=== PATIENT | female | born 1995 | race Caucasian/White ===

== ENCOUNTER 2017-12-20 07:49 | Emergency (ER) | payer OTHER ==
[2017-12-20 08:15] LABS: AMORPHOUS SEDIMENT RFX SMALL (NEGATIVE); KETONE, URINE AUTO RFX NEGATIVE (NEGATIVE); RBC, URINE AUTO RFX TNTC /HPF (0-3); SPECIFIC GRAVITY UR AUTO RFX 1.013 (1.002-1.035); SQUAM EPITHELIAL CELL UR AURFX 0 /HPF (0-6); TRANSITIONAL EPITHELIAL AU RFX 4 /HPF
[2017-12-20 08:18] LABS: LEUKOCYTE ESTERASE UR AUTO RFX 3+ (NEGATIVE); NITRITE, URINE AUTO RFX POSITIVE (NEGATIVE); WBC, URINE AUTO RFX TNTC /HPF (0-3)
== END 2017-12-20 08:38 | disposition home or self-care (01) ==
LOC: M ED 07:49
DX: N30.00 Acute cystitis without hematuria (principal); J45.909 Unspecified asthma, uncomplicated; Z88.0 Allergy status to penicillin; Z88.1 Allergy status to other antibiotic agents
CPT/HCPCS: 81001

== ENCOUNTER 2018-04-12 10:15 | Outpatient (RCR) | payer OTHER ==
[~2018-04-12 10:15] MED LIST: BACT800T5 PO
== END 2018-04-13 ==
LOC: M PT 10:15
PROVIDERS: ATTEND Specialist
DX: M62.838 Other muscle spasm (principal); N94.19 Other specified dyspareunia

== ENCOUNTER 2018-04-19 09:05 | Outpatient (RCR) | payer OTHER | END 2018-05-11 | LOC: M PT 09:05 | PROVIDERS: ATTEND Specialist | DX: M62.830 Muscle spasm of back (principal) ==

== ENCOUNTER → 2018-07-26 | Outpatient (CLI) | payer OTHER, MEDICAID ==
--- NOTE | 2018-07-27 04:41 | REP ---
Clinical: Anatomical evaluation. Comparison: None . Findings: Examination demonstrates a single live intrauterine in variable presentation. motion is identified by technologist. Placenta is noted posterior and grade grade 1 without evidence for placenta previa or abruption. Amniotic fluid volume is normal. Cervix measures 3.1 cm in length and appears closed. No evidence for nuchal cord. Gestational age by LMP 18 weeks 6 days with DANIEL 12/21/2018 . Gestational age by current measurements the 18 weeks 3 days with DANIEL 12/24/2018 . FHR equals 141 beats per minute. BPD 3.8 cm 17 weeks 5 days HC 15.2 cm 18 weeks 2 days AC 12.3 cm 18 weeks 0 days FL 2.8 cm 18 weeks 4 days HL 2.9 cm 19 weeks 4 days HC/AC ratio 1.24 Estimated weight 220 grams ( eight 22nd percentile). Anatomical assessment demonstrates normal structures including cranium, choroid plexus, cavum, cerebellum/posterior fossa, lungs, four-chamber heart/ventricular outflow tracts, diaphragm, stomach, cord insertion/three-vessel cord, kidneys/bladder, and extremities. Limited evaluation of the facial features and spine noted. Impression: 1. Single live intrauterine in variable presentation demonstrating appropriate interval growth. 2. Limited evaluation of the facial features and spine. Remainder of the anatomical assessment is complete and normal. Electronically Signed by Crow Talamantes MD 07/27/2018 04:32 A
== END ==
LOC: M RAD 10:02
PROVIDERS: ATTEND Specialist
DX: Z34.82 Encounter for supervision of other normal pregnancy, second trimester (principal); Z3A.18 18 weeks gestation of pregnancy

== ENCOUNTER → 2018-08-24 | Outpatient (CLI) | payer OTHER, MEDICAID ==
--- NOTE | 2018-08-24 11:38 | REP ---
OBSTETRIC SONOGRAPHY: HISTORY: Followup anatomy. Supervision of . FINDINGS: Scanning demonstrates a viable single intrauterine gestation in a breech lie. motion is observed, and heart rate is recorded at 146 beats per minute. A posterior grade 1 placenta is seen without evidence of previa or abruption. Amniotic fluid is subjectively normal. Closed cervical length is 4.7 cm measured transabdominally. No extrauterine abnormalities observed. There has been appropriate interval growth. Four-chamber heart view is less than optimally seen. Lower extremities are less than optimally seen today due to lie. These structures were observed previously. The following additional anatomic structures are identified and felt to be unremarkable today: cranium, choroid plexus, cavum, cerebellum and posterior fossa, face and profile, lungs, left and right ventricular cardiac outflow tract views, diaphragm, left-sided stomach, abdominal wall cord insertion, three-vessel cord, kidneys and bladder, spine, upper extremities. BIOMETRY CHART: BPD 4.8 cm = 20 weeks 4 days Head circumference 19.3 cm = 21 weeks 4 days Abdominal circumference 16.3 cm = 21 weeks 3 days Femur length 3.9 cm = 22 weeks 2 days Humeral length 3.4 cm = 21 weeks 4 days HC/AC ratio normal 1.18 Cephalic index 0.67 (0.70-0.86) Estimated weight 448 grams, 0 pounds 15 ounces, 10th percentile for 23 weeks 3 days. IMPRESSION: Viable single intrauterine gestation at 21 weeks 3 days by today's composite sonographic criteria. Expected gestational age estimate based on prior sonography 22 weeks 4 days DANIEL by prior sonography December 24, 2018. In conjunction with the prior study from July 26, 2018, anatomic survey is felt to be complete. Electronically Signed by Agusto Cadet MD 08/24/2018 03:05 P
== END ==
LOC: M RAD 09:45
PROVIDERS: ATTEND Specialist
DX: Z34.82 Encounter for supervision of other normal pregnancy, second trimester (principal)

== ENCOUNTER → 2018-09-28 | Outpatient (CLI) | payer OTHER, MEDICAID ==
--- NOTE | 2018-09-28 16:11 | REP ---
Static ultrasound, for low weight gain: There is a single intrauterine gestation in a vertex presentation. There is motion and cardiac activity. The heart rate is 163 beats per minute. The placenta is posterior without previa or abruptio and is grade zero. The amniotic fluid volume subjectively is normal. The amniotic fluid index is 11.0, (9.4 - 22.8). weight is 1090 grams/2 pounds, 6 ounces. This is the 31st percentile for 28 weeks 0 days. Gestational age by today's ultrasound is 27 weeks 0 days/DANIEL 12/28/2018. Gestational age by the first ultrasound is 27 weeks 4 days/DANIEL 12/24/2018. Gestational age by LMP is 20 weeks 0 days/DANIEL 12/21/2018. Umbilical artery Doppler assessment: S/D ratio 2.00 (2.30-3.30) Resistive Index 0.50 (0.59-0.75 Diastolic Velocity 15.4 (>10 cm/sec) On the prior study dated 08/24/2018. The anatomic survey was normal. anatomic survey is again repeated today and is normal. Electronically Signed by Benjamín Yuen MD 09/28/2018 04:03 P
== END ==
LOC: M RAD 10:34
PROVIDERS: ATTEND Advanced Practice Midwife
DX: O26.13 Low weight gain in pregnancy, third trimester (principal)

== ENCOUNTER → 2018-11-22 | Outpatient (REF) | payer OTHER, MEDICAID | LOC: M LAB REF 12:49 | PROVIDERS: ATTEND Advanced Practice Midwife | DX: Z34.83 Encounter for supervision of other normal pregnancy, third trimester (principal) ==

== ENCOUNTER → 2018-11-27 | Outpatient (CLI) | payer OTHER, MEDICAID ==
[~2018-11-27] MED LIST changes: +BUSP10TA PO; +PRENTAB9 PO
--- NOTE | 2018-11-28 04:50 | REP ---
Clinical: well-being Comparison: 09/28/2018 . Findings: Examination demonstrates a single live intrauterine in cephalic presentation. motion is identified by technologist. Placenta is noted posterior fundal and grade II without evidence for placenta previa or abruption. Amniotic fluid volume is normal. No evidence for nuchal cord. Gestational age by LMP 36 weeks 4 days with DANIEL 12/21/2018 . Gestational age by current measurements 36 weeks 0 days with DANIEL 12/25/2018 . FHR equals 144 beats per minute. BPD 8.8 cm 35 weeks 5 days HC 32.0 cm 36 weeks 1 day AC 32.2 cm 36 weeks 1 day FL 7.2 cm 36 weeks 6 days HC/AC ratio 0.99 Estimated weight 2893 grams ( 47 percentile). Amniotic fluid index: 13.8 cm Umbilical cord SD ratio: 2.28 Biophysical profile score: 6/8 ( breathing 0, tone 2, movement 2, AFV 2) Impression: 1. Single live intrauterine in cephalic presentation demonstrating appropriate interval growth. 2. Amniotic fluid volume normal. 3. Biophysical profile score: 6/8 Electronically Signed by Crow Talamantes MD 11/28/2018 04:43 A
== END ==
LOC: M LRY 08:02
PROVIDERS: ATTEND Advanced Practice Midwife
DX: Z34.83 Encounter for supervision of other normal pregnancy, third trimester (principal); Z3A.36 36 weeks gestation of pregnancy

== ENCOUNTER 2018-12-15 17:58 | Inpatient (IN) | payer OTHER, MEDICAID ==
[~2018-12-15] VITALS: Ht 170.2 cm; Wt 68.0 kg
[~2018-12-15 17:58] MED LIST changes: -BUSP10TA PO; -PRENTAB9 PO
[2018-12-15 18:35] VITALS: BP 126/71
[2018-12-15] MEDS ORDERED: LACTATED RINGER'S 1000 ML IV STA (18:37)
--- NOTE | 2018-12-15 18:55 | HPEPDOC ---
Obstetrical History & Physical General Date of Admission Dec 15, 2018 at 17:58 History of Present Illness Chief Complaint: Induction of labor Information Provided By: Patient Age: 23 : 3 Term: 1 Pre-term: 0 Abortions: 1 Livin Care Care: Good Care Dating Final EDC: Dec 21, 2018 Final EDC by: LMP EGA at Admission: 39 (+1) Antepartum Course Height (inches): 67 Pre- weight (lbs.): 140 Admission Weight (lbs.): 151 Past Medical History Past Obstetrical History : Past Obstetrical History: Primgravida (2014) Type of Delivery: Spontaneous Vaginal Del. Sex of Infant: Male (7 lbs. 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 Past Medical History Medical History Noncontributory Surgical History: Gallbladder Family History Significant Family History: Diabetes Social History Marital Status: Family situation: Spouse/partner home Psychosocial History: Anxiety * Smoker: non-smoker Alcohol: Denies Drugs: denies Abuse Violence Screening Have you been hit/kicked/slapp: No Have you been sexually assault: No Imunizations Tdap status: current Influenza Status: current Allergies Coded Allergies: MS - Cefaclor (Verified Allergy, Intermediate, hives, 12/15/18) MS - Penicillins (Verified Allergy, Intermediate, hives, 12/15/18) Medications Scheduled Sulfamethoxazole/Trimethoprim (Bactrim Ds Tablet) 1 Tab Tab, 1 TAB PO Q12H Physical Examination Physical Examination GENERAL: Alert and oriented times three. BREAST: . ABDOMEN: Gravid and non-tender to touch. FETUS: Is vertex (VTX) by sterile vaginal examination (SVE), fetus is vertex (VTX) by Fortunato. HEART RATE: Regular rate and rhythm. LUNGS: Clear to auscultation (CTA). EXTREMITIES: No edema. No clonus. Deep tendon reflexes (DTRs) + 2. Laboratory Data 24H LABS Laboratory Tests 2 12/15/18 18:40: Serology Scanned Report Hepatitis B Testing Pertinent Laboratoy Data Blood Type: O+ RBC Antibody Screen: Negative HIV: Negative Hepatitis B: Negative Hepatitis C: Negative Rapid Plasma Reagin: Nonreactive Rubella: Immune Chlamydia/Gonorrhea: Negative Group B Streptococcus: Negative Quad Screen Test: Negative (maternity 21 negative) Glucose Tolerance Test: 127 Anatomy Ultrasound Ultrasound Date: July 26, 2018 Placenta Location: Posterior Normal Anatomy: Yes Placenta Previa: No Estimated Weight (grams): 228 (22%) Other Ultrasounds 05/12/2018, dating 7 weeks 3 days. 08/24/2018, estimated weight 448 g, 10% 09/28/2018, 1090 g, 31% 11/27/2018 2893 g, 47% Steroid Therapy Steroid Therapy: No Vaginal Examination Dilation: 2cm Effacement: 50% Station: -1 Cervical Consistency: Medium Cervical Position: Middle Presentation: Cephalic presentation Assessment Heart Rate (FHR): 155 Variability: Moderate Accelerations: Positive Decelerations: None Tocometer Contractions: No Assessment/Plan Assessment Fadia is a 23-year-old (G) 3 para (P) 1 -0 -1-1 at 39 +, 1 weeks by 7-week ultrasound. Presents to Labor and Delivery (L&D) for elective induction of labor. She denies loss of fluid, bleeding or regular contractions. Reports good movement. has been complicated by anxiety and poor weight gain.. Plan Admit and orient per consult Dr. Silva. 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 Diet: Regular. Group B Streptococcus (GBS) negative. Labs and intravenous (IV) per unit protocol. Counseled on misoprostol, Pitocin and induction of labor (IOL). Lactated Ringers (LR): Bolus 500 mL, then saline lock. Patient plans to labor ad camryn. Anticipate, normal spontaneous vaginal delivery. C-S as appropriate. Emy Rothman CNM Dec 15, 2018 18:55
[2018-12-15] MEDS ORDERED: miSOPROStol 50 MCG 1/2 TAB (S0191) PO SCH (19:00)
[2018-12-15 19:10] LABS: HEMATOCRIT 33.6 % (36.0-47.0); HEMOGLOBIN 11.2 g/dl (12.0-15.5); MEAN CORPUSCULAR HEMOGLOBIN 29.3 pg (27.0-33.0); MEAN CORPUSCULAR HGB CONC 33.3 g/dl (32.0-36.5); PLATELET COUNT, AUTOMATED 221 10^3/uL (150-450); RED BLOOD COUNT 3.82 10^6/uL (4.00-5.40); WHITE BLOOD COUNT 10.5 10^3/uL (4.0-10.0)
[2018-12-15 19:44] VITALS: BP 129/80
[2018-12-15 22:31] VITALS: BP 119/62
[2018-12-15] MEDS ORDERED: LR 1,000 ML IV SCH (23:03)
--- NOTE | 2018-12-15 23:05 | IPNPDOC ---
Text Note Date of Service The patient was seen on 12/15/18. NOTE Reports contractions that increased in intensity. Contractions every 2-4 minutes 45-60 seconds, moderate intensity. heart 145, category 1. SVE 3 cm, 80% effaced, -1 station. Will start Pitocin. Anticipate normal spontaneous vaginal VS,Fishbone, I+O VS, Fishbone, I+O Laboratory Tests 12/15/18 18:57 Red Blood Count 3.82 L, Mean Corpuscular Volume 88.0, Mean Corpuscular Hemoglobin 29.3, Mean Corpuscular Hemoglobin Concent 33.3, Red Cell Distribution Width 13.8 Emy Rothman CNM Dec 15, 2018 23:05
[2018-12-15] MEDS ORDERED: OXYTOCIN DRIP 30 UNITS in IV 1 EA IV SCH (23:15)
[2018-12-15 23:21] VITALS: BP 117/71
[2018-12-16] VITALS (20 sets, daily range): BP systolic 94–126; BP diastolic 50–86
[2018-12-16] MEDS ORDERED: BUTORPHANOL 2 MG/ML INJ (J0595) IV ONE (04:15)
[2018-12-16] MEDS ORDERED: PROMETHAZINE INJ 25 MG/ML VIAL (J2550) IV ONE (04:15)
--- NOTE | 2018-12-16 04:15 | IPNPDOC ---
Text Note Date of Service The patient was seen on 12/16/18. NOTE Pitocin @ 6mu UC Q 2 minutes FH Cat I, 145 SVE /-1 AROM small amount clear fluid VS,Fishbone, I+O VS, Fishbone, I+O Laboratory Tests 12/15/18 18:57 Red Blood Count 3.82 L, Mean Corpuscular Volume 88.0, Mean Corpuscular Hemoglob in 29.3, Mean Corpuscular Hemoglobin Concent 33.3, Red Cell Distribution Width 13.8 Vital Signs Date Time Temp Pulse Resp B/P (MAP) Pulse Ox O2 Delivery O2 Flow Rate FiO2 12/16/18 02:49 68 115/69 (84) 12/15/18 19:44 98.5 16 I&O- Last 24 Hours up to 6 AM 12/16/18 06:00 Intake Total 740 ml Output Total 300 ml Balance 440 ml Emy Rothman CNM Dec 16, 2018 04:15
--- NOTE | 2018-12-16 06:12 | IPNPDOC ---
Text Note Date of Service The patient was seen on 12/16/18. NOTE Reports feeling pressure UC Q 2-3 minutes, strong FH 120, min/moderate variability with early decels SVE 8/100/-1 Anticipate NSVB VS,Fishbone, I+O VS, Fishbone, I+O Laboratory Tests 12/15/18 18:57 Red Blood Count 3.82 L, Mean Corpuscular Volume 88.0, Mean Corpuscular Hemoglobin 29.3, Mean Corpuscular Hemoglobin Concent 33.3, Red Cell Distribution Width 13.8 Vital Signs Date Time Temp Pulse Resp B/P (MAP) Pulse Ox O2 Delivery O2 Flow Rate FiO2 12/16/18 04:50 72 121/76 (91) 12/16/18 04:48 18 12/16/18 03:19 97.3 I&O- Last 24 Hours up to 6 AM 12/16/18 06:00 Intake Total 740 ml Output Total 550 ml Balance 190 ml Emy Rothman CNM Dec 16, 2018 06:12
[2018-12-16] MEDS ORDERED: RHOGAM 300 MCG (1500 IU) INJ (J2790) IM SCH (08:00)
[2018-12-16] MEDS ORDERED: MEASLES,MUMPS,RUBELLA VACCINE INJ (MMR-II) (90707) SC SCH (08:00)
[2018-12-16] MEDS ORDERED: ANUSOL HC CREAM 30GM TOP PRN (08:00)
[2018-12-16] MEDS ORDERED: DIBUCAINE 1% OINTMENT 30GM TOP PRN (08:00)
[2018-12-16] MEDS ORDERED: IBUPROFEN 600 MG TAB PO PRN (08:00)
[2018-12-16] MEDS ORDERED: ACETAMINOPHEN TAB 650MG DOSE (2X325MG) PO PRN (08:00)
[2018-12-16] MEDS ORDERED: METHYLERGONOVINE MALEATE 0.2 MG TAB PO PRN (08:00)
[2018-12-16] MEDS ORDERED: DOCUSATE SODIUM 100 MG CAP PO PRN (08:00)
[2018-12-16] MEDS ORDERED: LIDOCAINE 1% MDV 20ML VIAL INFIL ONE (08:00)
[2018-12-16] MEDS ORDERED: MOM 30ML SUSPENSION UDC PO PRN (08:00)
--- NOTE | 2018-12-16 08:05 | DNPDOC ---
[facility] Delivery Note Delivery Note DATE OF DELIVERY: 12/16/2018 PREDELIVERY DIAGNOSIS: 39-2/7 weeks' gestation and labor. POST DELIVERY DIAGNOSIS: Delivered. PROCEDURE: Spontaneous vaginal delivery. Provider: Emy Rothman CNM ANESTHESIA: None. ESTIMATED BLOOD LOSS: 150 mL. FINDINGS: 6 pound 13 ounce, 3100 g female infant, Score, 9/, 9, nuchal cord times 1, loose. DELIVERY SUMMARY: Patient is a 23-year-old 3 now para 2 -0 -1-2 who was admitted to labor and delivery for elective induction of labor at 39 weeks. She received misoprostol 1 and Pitocin intravenously and labor did progress. She coping with her labor physiologically utilizing Stadol and Phenergan 1. Artificial rupture of the membranes at 0409 for clear fluid, small amount. Fully dilated at 0625. Viable female child delivered YG after reduction of loose nuchal cord at 0643. Spontaneous respirations. Transitioned on maternal abdomen. Cord doubly clamped and cut by the grandmother. After pulsation ceased. Apgars were 9 and 9. Placenta delivered Adamson and intact with a three-vessel cord at 0653. Fundus firmed with massage and IV Pitocin bolus. EBL 150 mL. Perineum, cervix and vagina were inspected. Small bilateral labial abrasions were infiltrated with lidocaine and repaired with 1 stitch of 3-0 Vicryl Rapide each. Sponge, sharp and instrument count correct. Emy Rothman CNM Dec 16, 2018 08:05
[2018-12-16] MEDS: busPIRone 10 MG TAB PO SCH ×2 (09:00→21:18)
[2018-12-16] MEDS: PRENATAL VITAMINS CHEWABLE TABLET PO SCH (10:00)
[2018-12-16] MEDS ORDERED: BUSP10TA PO (11:22)
[2018-12-16] MEDS ORDERED: PRENTAB9 PO (12:38)
[2018-12-16] MEDS: IBUPROFEN 800 MG TAB PO PRN ×2 (13:06→21:18)
[2018-12-16] MEDS: ACETAMINOPHEN 500 MG TAB PO PRN (15:33)
[2018-12-17 05:51] VITALS: BP 110/59
[2018-12-17] MEDS: PRENATAL VITAMINS CHEWABLE TABLET PO SCH (08:21)
[2018-12-17] MEDS: IBUPROFEN 800 MG TAB PO PRN (08:21)
[2018-12-17] MEDS: busPIRone 10 MG TAB PO SCH (08:21)
[2018-12-17] MEDS: ACETAMINOPHEN 500 MG TAB PO PRN (11:31)
== END 2018-12-17 15:15 | disposition home or self-care (01) | DRG 807 ==
LOC: M LDI 17:58 → M OBS 12-16 09:15
PROVIDERS: ADMIT Advanced Practice Midwife; ATTEND Advanced Practice Midwife
PROC: 3E0P7GC Introduction of Other Therapeutic Substance into Female Reproductive, Via Natural or Artificial Opening (ICD-10-PCS; 2018-12-15)
PROC: 10E0XZZ Delivery of Products of Conception, External Approach (ICD-10-PCS; principal; 2018-12-16)
PROC: 10907ZC Drainage of Amniotic Fluid, Therapeutic from Products of Conception, Via Natural or Artificial Opening (ICD-10-PCS; 2018-12-16)
DX: O99.344 Other mental disorders complicating childbirth (principal); Z37.0 Single live birth; F41.9 Anxiety disorder, unspecified; Z3A.39 39 weeks gestation of pregnancy; O69.81X0 Labor and delivery complicated by cord around neck, without compression, not applicable or unspecified

== ENCOUNTER → 2020-08-22 | Outpatient (REF) | payer OTHER, MEDICAID ==
[~2020-08-22] MED LIST changes: +BUSP10TA PO; +PRENTAB9 PO
== END ==
LOC: M SFHCWAGY 19:22
PROVIDERS: ATTEND Specialist
DX: Z12.4 Encounter for screening for malignant neoplasm of cervix (principal)

== ENCOUNTER → 2020-12-12 | Outpatient (REF) | payer OTHER, MEDICAID | LOC: M SFHCWAGY 13:35 | PROVIDERS: ATTEND Specialist | DX: R87.615 Unsatisfactory cytologic smear of cervix (principal) | CPT/HCPCS: G0123; G0463 ==